=== PATIENT | female | born 1950 | race Caucasian/White ===

== ENCOUNTER 2018-08-08 09:27 | Outpatient (CLI) | payer MEDICARE, OTHER ==
[~2018-08-08] VITALS: Ht 160 cm; Wt 119.7 kg
[2018-08-08 09:41] VITALS: BP 157/89
[2018-08-08 10:12] LABS: BASOPHILS % (AUTO) 0 % (0-10); EOSINOPHILS % (AUTO) 0 % (0-10); HEMATOCRIT 43 % (35-52); HEMOGLOBIN 14.1 G/DL (11.5-16.0); LYMPHOCYTES # (AUTO) 1.3 X 10^3 (1.0-4.0); LYMPHOCYTES % (AUTO) 14 % (12-44); MEAN CORPUSCULAR HEMOGLOBIN 31 PG (25-34); MEAN CORPUSCULAR HGB CONC 33 G/DL (32-36); MEAN CORPUSCULAR VOLUME 94 FL (80-99); MEAN PLATELET VOLUME 10.4 FL (7.4-10.4); MONOCYTES # (AUTO) 0.8 X 10^3 (0.0-1.0); MONOCYTES % (AUTO) 9 % (0-12); NEUTROPHILS # (AUTO) 7.3 X 10^3 (1.8-7.8); NEUTROPHILS % (AUTO) 77 % (42-75); PLATELET COUNT 251 10^3/uL (130-400); RED CELL DISTRIBUTION WIDTH 14.8 % (10.0-14.5); WHITE BLOOD COUNT 9.5 10^3/uL (4.3-11.0)
[2018-08-08 10:28] LABS: BUN/CREATININE RATIO 18; CALCIUM 9.7 MG/DL (8.5-10.1); CARBON DIOXIDE 25 MMOL/L (21-32); CHLORIDE 105 MMOL/L (98-107); CREATININE SERUM 0.72 MG/DL (0.60-1.30); GFR ESTIMATED > 60; GLUCOSE 88 MG/DL (70-105); POTASSIUM 3.9 MMOL/L (3.6-5.0); SODIUM 140 MMOL/L (135-145)
--- NOTE | 2018-08-08 10:54 | Diagnostic Imaging Report ---
INDICATION: Preop for sinus surgery. TIME OF EXAMINATION: 10:10 a.m. COMPARISON: No prior studies are available for comparison. FINDINGS: The heart size is normal. Lungs are clear. The pulmonary vascularity is normal. No infiltrate, effusion or pneumothorax is seen. There are postop changes in the lower cervical spine. IMPRESSION: No acute cardiopulmonary process is detected. Dictated by: Dictated on workstation # [id number]
[2018-08-08] MEDS ORDERED: PARO40TA PO (12:13)
[2018-08-08] MEDS ORDERED: CALC600T12 PO (12:14)
[2018-08-08] MEDS ORDERED: CHOL500049 PO (12:14)
[2018-08-08] MEDS ORDERED: DOXE100C4 PO (12:14)
[2018-08-08] MEDS ORDERED: RT-ALBUINH IH (12:14)
[2018-08-08] MEDS ORDERED: FLUT1DIS26 IH (12:14)
== END 2018-08-08 10:20 | disposition home or self-care (01) ==
LOC: PREOP 09:27
PROVIDERS: ATTEND Otolaryngology Otolaryngology/Facial Plastic Surgery
DX: Z01.810 Encounter for preprocedural cardiovascular examination (principal); Z01.811 Encounter for preprocedural respiratory examination; Z01.812 Encounter for preprocedural laboratory examination; Z11.2 Encounter for screening for other bacterial diseases; J32.9 Chronic sinusitis, unspecified; J34.3 Hypertrophy of nasal turbinates
CPT/HCPCS: 36415; 71046; 80048; 85025; 87081; 93005

== ENCOUNTER 2018-08-11 06:28 | Day surgery (SDC) | payer MEDICARE, OTHER ==
[~2018-08-11] VITALS: Ht 160 cm; Wt 119.7 kg
[~2018-08-11 06:28] MED LIST: CALC600T12 PO; CHOL500049 PO; DOXE100C4 PO; FLUT1DIS26 IH; PARO40TA PO; RT-ALBUINH IH
[2018-08-11] MEDS ORDERED: HYDROCORTISONE 100 MG/2 ML (Solu-CORTEF) VIAL IV ONE (06:45)
[2018-08-11] MEDS ORDERED: AMPICILLIN/SULBACTAM INJECTION 1.5 GM in NS (IVPB) 100 ML IV ONE (06:45)
[2018-08-11] MEDS ORDERED: CATHETER FLUSH 10 ML SYR IV PRN (07:00)
[2018-08-11 07:05] VITALS: BP 164/98
[2018-08-11] MEDS: LACTATED RINGERS 1,000 ML IV PRN ×2 (07:05→08:45)
--- NOTE | 2018-08-11 07:12 | Progress Note-Pre Operative ---
Pre-Operative Progress Note H&P Reviewed The H&P was reviewed, patient examined and no changes noted. Date Seen by Provider: Aug 11, 2018 Time Seen by Provider: 06:30 Date H&P Reviewed: Aug 11, 2018 Time H&P Reviewed: 06:30 Pre-Operative Diagnosis: Bilaty Chronic Sinustitis, Bialt HYper of INf Turbs ZEB HOLLINGSWORTH MD Aug 11, 2018 07:12
[2018-08-11] MEDS ORDERED: FAMOTIDINE 20MG/2ML IV (PEPCID) IV ONE (07:15)
[2018-08-11] MEDS ORDERED: ONDANSETRON 4 MG/2 ML (SDV) Z0FRAN IV ONE (07:15)
[2018-08-11] MEDS ORDERED: SCOPOLAMINE 1.5 MG (TRANSDERM-SCOP) PATCH TOP ONE (07:15)
[2018-08-11] MEDS ORDERED: PHENYLEPHRINE 0.25% NASAL SPR (NEO-SYNEPHRINE) 15 ML NS ONE (07:52)
[2018-08-11] MEDS ORDERED: COCAINE HCL 4% 2 ML SYR ONE (07:52)
[2018-08-11] MEDS ORDERED: LIDOCAINE/EPI 1%-1:100,000 (XYLOCAINE) 20ML ONE (07:52)
[2018-08-11] MEDS ORDERED: PHENYLEPHRINE 0.5% NASAL SPR (NEO-SYNEPHRINE) REG ONE (07:52)
[2018-08-11] MEDS ORDERED: BSS 15 ML ONE (07:52)
[2018-08-11] MEDS ORDERED: proPOfol 200 MG/20 ML (DIPRIVAN) VIAL IV ONE (07:54)
[2018-08-11] MEDS ORDERED: LIDOCAINE PF 2% 5 ML (XYLOCAINE) VIAL ONE (07:54)
[2018-08-11] MEDS ORDERED: SEVOFLURANE (ULTANE) 15 ML INHAL SOLN ONE ×5 (07:54→09:41)
[2018-08-11] MEDS ORDERED: fentaNYL INJECTION 100 MCG/2 ML AMP ONE ×2 (07:54→09:18)
[2018-08-11] MEDS ORDERED: DEXAMETHASONE 10 MG/ML (DECADRON) 1 ML VIAL ONE (07:54)
[2018-08-11] MEDS ORDERED: ONDANSETRON 4 MG/2 ML (SDV) Z0FRAN ONE (07:54)
[2018-08-11] MEDS ORDERED: MIDAZOLAM 2 MG/2 ML (VERSED) VIAL ONE (07:55)
[2018-08-11] MEDS ORDERED: GLYCOPYRROLATE 0.2 MG/ML (ROBINUL) 2 ML VIAL ONE (08:05)
[2018-08-11] MEDS ORDERED: NEOSTIGMINE 1 MG/ML 5 ML SYRINGE ONE (08:05)
[2018-08-11] MEDS ORDERED: ROCURONIUM 10 MG/ML 5 ML SYRINGE IV ONE (09:03)
[2018-08-11] MEDS ORDERED: D5 1/2 NS W/KCL 20 MEQ/L 1,000 ML IV SCH (09:28)
--- NOTE | 2018-08-11 09:28 | Progress Note-Post Operative ---
Post-Operative Progess Note Surgeon (s)/Meat Soaker (s) Surgeon ZEB HOLLINGSWORTH MD Meat Soaker n/a Pre-Operative Diagnosis Bilaty Chronic Sinustitis, Bialt HYper of INf Turbs Post-Operative Diagnosis same Post-Op Procedure Note Date of Procedure: Aug 11, 2018 Name of Procedure Performed: Bilat ESS, Bilat PArtial REd of INf Turbs Description & Findings Description and Findings: n/a Anesthesia Type get Estimated Blood Loss minimal Packing dnp bilat Specimen(s) collected/removed Bilat Chrnic sinus disease ZEB HOLLINGSWORTH MD Aug 11, 2018 09:28
[2018-08-11] MEDS ORDERED: predniSONE 20 MG TAB PO ONE (09:30)
[2018-08-11] MEDS ORDERED: PROMETHAZINE INJ 25 MG/ML (PHENERGAN) AMP IVP PRN (09:30)
[2018-08-11] MEDS ORDERED: ACETAMINOPHEN 325 MG TABLET PO PRN (09:30)
[2018-08-11] MEDS ORDERED: HYDROcodone/APAP 5 MG/325 MG (LORTAB) TAB PO PRN (09:30)
[2018-08-11] MEDS ORDERED: RT-ALBUTEROL HFA (VENTOLIN) PER PUFF IH ONE (09:40)
[2018-08-11] MEDS ORDERED: LABETALOL HCL 20 MG/4 ML VIAL ONE (09:41)
[2018-08-11] MEDS ORDERED: ONDANSETRON 4 MG/2 ML (SDV) Z0FRAN IVP PRN (09:45)
[2018-08-11] MEDS ORDERED: morphine INJ 10 MG/ML 1ML (SYR OR VIAL) IVP ONE (09:45)
[2018-08-11] MEDS ORDERED: RT-ALBUTEROL SULF 2.5 MG/3 ML PRE-MIX VIAL ONE (09:57)
[2018-08-11 10:45] VITALS: BP 164/98
[2018-08-11 11:15] VITALS: BP 153/86
[2018-08-11] MEDS ORDERED: predniSONE 20 MG TAB ONE (11:38)
[2018-08-11 11:45] VITALS: BP 166/107
[2018-08-11] MEDS ORDERED: LABETALOL HCL 20 MG/4 ML VIAL IV ONE (11:45)
[2018-08-11] MEDS ORDERED: RT-ALBUTEROL SULF 2.5 MG/3 ML PRE-MIX VIAL INH ONE (11:45)
[2018-08-11] MEDS ORDERED: HYDR-3812 PO (12:19)
[2018-08-11] MEDS ORDERED: PRED-501 PO (12:19)
[2018-08-11] MEDS ORDERED: AMOX-355 PO (12:19)
[2018-08-11 12:45] VITALS: BP 168/94
[2018-08-11 13:30] VITALS: BP 168/94
--- NOTE | 2018-08-11 13:36 | Anesthesia-General Post-Op ---
General Patient Condition Mental Status/LOC: Same as Preop Cardiovascular: Satisfactory Nausea/Vomiting: Absent Respiratory: Satisfactory Pain: Controlled Complications: Absent Post Op Complications Complications None Follow Up Care/Instructions Patient Instructions None needed. Anesthesia/Patient Condition Patient Condition Patient is doing well, no complaints, stable vital signs, no apparent adverse anesthesia problems. No complications reported per nursing. ELIA ASKEW CRNA Aug 11, 2018 13:36
== END 2018-08-11 13:30 | disposition home or self-care (01) ==
LOC: SDC 06:28
PROVIDERS: ATTEND Otolaryngology Otolaryngology/Facial Plastic Surgery
DX: J32.2 Chronic ethmoidal sinusitis (principal); J32.0 Chronic maxillary sinusitis; J34.3 Hypertrophy of nasal turbinates; J45.909 Unspecified asthma, uncomplicated; F32.9 Major depressive disorder, single episode, unspecified; M81.0 Age-related osteoporosis without current pathological fracture; E66.9 Obesity, unspecified; Z68.42 Body mass index [BMI] 45.0-49.9, adult; Z79.899 Other long term (current) drug therapy

== ENCOUNTER → 2018-12-22 | Outpatient (CLI) | payer MEDICARE, OTHER ==
[~2018-12-22] MED LIST changes: +AMOX-355 PO; +BARIUM SUSPENSION 105% (LIQUID POLIBAR PLUS) 240 ML/DOSE PO ONE; +BARIUM SUSPENSION 60% (LIQUID EZ PAQUE) 240 ML DOSE PO ONE; +HYDR-3812 PO; +PRED-501 PO
--- NOTE | 2018-12-22 13:52 | Diagnostic Imaging Report ---
INDICATION: Preop for a bariatric surgery. TECHNIQUE: Patient ingested effervescent crystals as well as thin and thick barium and imaging of the esophagus, stomach and proximal small bowel was performed. A total of one minute 10 seconds of fluoroscopic time was utilized. FINDINGS: Esophagus has a smooth contour. No mass or stricture is identified. No gastro-esophageal reflux or hiatal hernia was demonstrated. Stomach is without deformity. The duodenal bulb is without deformity. There is normal passage of contrast in the proximal small bowel loops. IMPRESSION: Unremarkable upper GI. Dictated by: Dictated on workstation # [id number]
== END ==
LOC: RAD 08:35
PROVIDERS: ATTEND Surgery
DX: Z01.818 Encounter for other preprocedural examination (principal); K21.9 Gastro-esophageal reflux disease without esophagitis
CPT/HCPCS: 74241

== ENCOUNTER 2019-01-12 08:53 | Outpatient (CLI) | payer MEDICARE, OTHER ==
[~2019-01-12] VITALS: Ht 160 cm; Wt 117.5 kg
[~2019-01-12 08:53] MED LIST changes: -BARIUM SUSPENSION 105% (LIQUID POLIBAR PLUS) 240 ML/DOSE PO ONE; -BARIUM SUSPENSION 60% (LIQUID EZ PAQUE) 240 ML DOSE PO ONE
[2019-01-12] MEDS ORDERED: ALPR0.254 PO (09:05)
[2019-01-12] MEDS ORDERED: DENO60DI SQ (09:05)
[2019-01-12] MEDS ORDERED: IBUP-1780 PO (09:05)
[2019-01-12] MEDS ORDERED: GUAI600T43 PO (09:05)
[2019-01-12 09:08] VITALS: BP 142/81
[2019-01-12 09:41] LABS: BASOPHILS % (AUTO) 0 % (0-10); EOSINOPHILS # (AUTO) 0.1 10^3/uL (0.0-0.3); EOSINOPHILS % (AUTO) 1 % (0-10); HEMATOCRIT 46 % (35-52); HEMOGLOBIN 15.3 G/DL (11.5-16.0); LYMPHOCYTES # (AUTO) 1.1 X 10^3 (1.0-4.0); LYMPHOCYTES % (AUTO) 12 % (12-44); MEAN CORPUSCULAR HEMOGLOBIN 30 PG (25-34); MEAN CORPUSCULAR HGB CONC 33 G/DL (32-36); MEAN CORPUSCULAR VOLUME 91 FL (80-99); MEAN PLATELET VOLUME 11.4 FL (7.4-10.4); MONOCYTES # (AUTO) 0.7 X 10^3 (0.0-1.0); MONOCYTES % (AUTO) 7 % (0-12); NEUTROPHILS # (AUTO) 7.2 X 10^3 (1.8-7.8); NEUTROPHILS % (AUTO) 79 % (42-75); PLATELET COUNT 214 10^3/uL (130-400); RED CELL DISTRIBUTION WIDTH 14.8 % (10.0-14.5); WHITE BLOOD COUNT 9.1 10^3/uL (4.3-11.0)
[2019-01-19] MEDS ORDERED: ONDN4T PO (13:05)
[2019-01-19] MEDS ORDERED: HYDR-34 PO (13:05)
[2019-01-19] MEDS ORDERED: PANT40TA2 PO (13:05)
== END 2019-01-12 14:40 | disposition home or self-care (01) ==
LOC: PREOP 08:53
PROVIDERS: ATTEND Surgery
DX: Z01.818 Encounter for other preprocedural examination (principal); E66.01 Morbid (severe) obesity due to excess calories
CPT/HCPCS: 36415; 85025; 87081

== ENCOUNTER 2019-01-19 10:30 | Inpatient (IN) | payer MEDICARE, OTHER ==
[2019-01-19] VITALS (10 sets, daily range): BP systolic 124–163; BP diastolic 67–84
[~2019-01-19] VITALS: Ht 160 cm; Wt 117.5 kg
[~2019-01-19 10:30] MED LIST changes: +ALPR0.254 PO; +DENO60DI SQ; +GUAI600T43 PO; +IBUP-1780 PO
--- OUTSIDE RECORDS SUMMARY | 2019-01-19 12:47 | XMS REPORT | Continuity of Care Document ---
Author Organization Unknown Address Unknown Allergies Active Description Code Type Severity Reaction Onset Reported/Identified Relationship to Patient Clinical Status Yes NKANo Known Allergies NKA Miscellaneous Allergy Unknown N/A 05/19/2006 Yes No Known Drug Allergies [id number] Drug Allergy Unknown N/A 01/12/2019 Medications There is no data. Problems Date Dx Coded Attending Type Code Diagnosis Diagnosed By 08/08/2018 ZEB HOLLINGSWORTH MD, Ot J32.9 CHRONIC SINUSITIS, UNSPECIFIED 08/08/2018 ZEB HOLLINGSWORTH MD Ot J34.3 HYPERTROPHY OF NASAL TURBINATES 08/08/2018 ZEB HOLLINGSWORTH MD Ot Z01.810 ENCOUNTER FOR PREPROCEDURAL CARDIOVASCUL 08/08/2018 ZEB HOLLINGSWORTH MD Ot Z01.811 ENCOUNTER FOR PREPROCEDURAL RESPIRATORY 08/08/2018 ZEB HOLLINGSWORTH MD Ot Z01.812 ENCOUNTER FOR PREPROCEDURAL LABORATORY E 08/08/2018 ZEB HOLLINGSWORTH MD Ot Z11.2 ENCOUNTER FOR SCREENING FOR OTHER BACTER 08/09/2018 ZEB HOLLINGSWORTH MD Ot J32.9 CHRONIC SINUSITIS, UNSPECIFIED 08/09/2018 ZEB HOLLINGSWORTH MD Ot J34.3 HYPERTROPHY OF NASAL TURBINATES 08/09/2018 ZEB HOLLINGSWORTH MD Ot Z01.810 ENCOUNTER FOR PREPROCEDURAL CARDIOVASCUL 08/09/2018 ZEB HOLLINGSWORTH MD Ot Z01.811 ENCOUNTER FOR PREPROCEDURAL RESPIRATORY 08/09/2018 ZEB HOLLINGSWORTH MD Ot Z01.812 ENCOUNTER FOR PREPROCEDURAL LABORATORY E 08/09/2018 ZEB HOLLINGSWORTH MD Ot Z11.2 ENCOUNTER FOR SCREENING FOR OTHER BACTER 08/11/2018 ZEB HOLLINGSWORTH MD Ot E66.9 OBESITY, UNSPECIFIED 08/11/2018 ZEB HOLLINGSWORTH MD Ot F32.9 MAJOR DEPRESSIVE DISORDER, SINGLE EPISOD 08/11/2018 ZEB HOLLINGSWORTH MD Ot J32.0 CHRONIC MAXILLARY SINUSITIS 08/11/2018 ZEB HOLLINGSWORTH MD Ot J32.2 CHRONIC ETHMOIDAL SINUSITIS 08/11/2018 ZEB HOLLINGSWORTH MD P Ot J34.3 HYPERTROPHY OF NASAL TURBINATES 08/11/2018 ZEB HOLLINGSWORTH MD Ot J45.909 UNSPECIFIED ASTHMA, UNCOMPLICATED 08/11/2018 ZEB HOLLINGSWORTH MD Ot M81.0 AGE-RELATED OSTEOPOROSIS W/O CURRENT PAT 08/11/2018 ZEB HOLLINGSWORTH MD Ot Z68.42 BODY MASS INDEX (BMI) 45.0-49.9, ADULT 08/11/2018 ZEB HOLLINGSWORTH MD Ot Z79.899 OTHER INTERMEDIATE (CURRENT) DRUG THERAPY 08/12/2018 ZEB HOLLINGSWORTH MD Ot E66.9 OBESITY, UNSPECIFIED 08/12/2018 ZEB HOLLINGSWORTH MD Ot F32.9 MAJOR DEPRESSIVE DISORDER, SINGLE EPISOD 08/12/2018 ZEB HOLLINGSWORTH MD P Ot J32.0 CHRONIC MAXILLARY SINUSITIS 08/12/2018 ZEB HOLLINGSWORTH MD P Ot J32.2 CHRONIC ETHMOIDAL SINUSITIS 08/12/2018 ZEB HOLLINGSWORTH MD Ot J34.3 HYPERTROPHY OF NASAL TURBINATES 08/12/2018 EZB HOLLINGSWORTH MD Ot J45.909 UNSPECIFIED ASTHMA, UNCOMPLICATED 08/12/2018 ZEB HOLLINGSWORTH MD Ot M81.0 AGE-RELATED OSTEOPOROSIS W/O CURRENT PAT 08/12/2018 ZEB HOLLINGSWORTH MD Ot Z68.42 BODY MASS INDEX (BMI) 45.0-49.9, ADULT 08/12/2018 ZEB HOLLINGSWORTH MD Ot Z79.899 OTHER INTERMEDIATE (CURRENT) DRUG THERAPY 08/15/2018 ZEB HOLLINGSWORTH MD Ot E66.9 OBESITY, UNSPECIFIED 08/15/2018 ZEB HOLLINGSWORTH MD Ot F32.9 MAJOR DEPRESSIVE DISORDER, SINGLE EPISOD 08/15/2018 ZEB HOLLINGSWORTH MD P Ot J32.0 CHRONIC MAXILLARY SINUSITIS 08/15/2018 ZEB HOLLINGSWORTH MD P Ot J32.2 CHRONIC ETHMOIDAL SINUSITIS 08/15/2018 ZEB HOLLINGSWORTH MD P Ot J34.3 HYPERTROPHY OF NASAL TURBINATES 08/15/2018 ZEB HOLLINGSWORTH MD Ot J45.909 UNSPECIFIED ASTHMA, UNCOMPLICATED 08/15/2018 ZEB HOLLINGSWORTH MD Ot M81.0 AGE-RELATED OSTEOPOROSIS W/O CURRENT PAT 08/15/2018 ZEB HOLLINGSWORTH MD Ot Z68.42 BODY MASS INDEX (BMI) 45.0-49.9, ADULT 08/15/2018 ZEB HOLLINGSWORTH MD Ot Z79.899 OTHER FUR POINTER (CURRENT) DRUG THERAPY 08/17/2018 ZEB HOLLINGSWORTH MD Ot E66.9 OBESITY, UNSPECIFIED 08/17/2018 ZEB HOLLINGSWORTH MD Ot F32.9 MAJOR DEPRESSIVE DISORDER, SINGLE EPISOD 08/17/2018 ZEB HOLLINGSWORTH MD Ot J32.0 CHRONIC MAXILLARY SINUSITIS 08/17/2018 ZEB HOLLINGSWORTH MD P Ot J32.2 CHRONIC ETHMOIDAL SINUSITIS 08/17/2018 ZEB HOLLINGSWORTH MD P Ot J34.3 HYPERTROPHY OF NASAL TURBINATES 08/17/2018 ZEB HOLLINGSWORTH MD Ot J45.909 UNSPECIFIED ASTHMA, UNCOMPLICATED 08/17/2018 ZEB HOLLINGSWORTH MD Ot M81.0 AGE-RELATED OSTEOPOROSIS W/O CURRENT PAT 08/17/2018 ZEB HOLLINGSWORTH MD Ot Z68.42 BODY MASS INDEX (BMI) 45.0-49.9, ADULT 08/17/2018 ZEB HOLLINGSWORTH MD Ot Z79.899 OTHER INTERMEDIATE (CURRENT) DRUG THERAPY 08/24/2018 ZEB HOLLINGSWORTH MD Ot E66.9 OBESITY, UNSPECIFIED 08/24/2018 ZEB HOLLINGSWORTH MD Ot F32.9 MAJOR DEPRESSIVE DISORDER, SINGLE EPISOD 08/24/2018 ZEB HOLLINGSWORTH MD Ot J32.0 CHRONIC MAXILLARY SINUSITIS 08/24/2018 ZEB HOLLINGSWORTH MD P Ot J32.2 CHRONIC ETHMOIDAL SINUSITIS 08/24/2018 ZEB HOLLINGSWORTH MD Ot J34.3 HYPERTROPHY OF NASAL TURBINATES 08/24/2018 ZEB HOLLINGSWORTH MD Ot J45.909 UNSPECIFIED ASTHMA, UNCOMPLICATED 08/24/2018 ZEB HOLLINGSWORTH MD Ot M81.0 AGE-RELATED OSTEOPOROSIS W/O CURRENT PAT 08/24/2018 ZEB HOLLINGSWORTH MD Ot Z68.42 BODY MASS INDEX (BMI) 45.0-49.9, ADULT 08/24/2018 ZEB HOLLINGSWORTH MD Ot Z79.899 OTHER INTERMEDIATE (CURRENT) DRUG THERAPY 12/28/2018 WAI BARKER MD, Ot K21.9 GASTRO-ESOPHAGEAL REFLUX DISEASE WITHOUT 12/28/2018 WAI BARKER MD, Ot Z01.818 ENCOUNTER FOR OTHER PREPROCEDURAL EXAMIN 01/12/2019 WAI BARKER MD, Ot1.9 GASTRO-ESOPHAGEAL REFLUX DISEASE WITHOUT 01/12/2019 WAI BARKER MD Ot Z01.818 ENCOUNTER FOR OTHER PREPROCEDURAL EXAMIN 01/19/2019 WAI BARKER MD, Ot E66.01 MORBID (SEVERE) OBESITY DUE TO EXCESS CA 01/19/2019 WAI BARKER MD, Ot Z01.818 ENCOUNTER FOR OTHER PREPROCEDURAL EXAMIN Procedures There is no data. Results Test Result Range Whole blood basic metabolic panel - 08/08/18 10:04 Serum or plasma sodium measurement (moles/volume) 140 mmol/L 135-145 Serum or plasma potassium measurement (moles/volume) 3.9 mmol/L 3.6-5.0 Serum or plasma chloride measurement (moles/volume) 105 mmol/L 98-107 Carbon dioxide 25 mmol/L 21-32 Serum or plasma anion gap determination (moles/volume) 10 mmol/L 5-14 Serum or plasma urea nitrogen measurement (mass/volume) 13 mg/dL 7-18 Serum or plasma creatinine measurement (mass/volume) 0.72 mg/dL 0.60-1.30 Serum or plasma urea nitrogen/creatinine mass ratio 18 NRG Serum or plasma creatinine measurement with calculation of estimated glomerular filtration rate > NRG Serum or plasma glucose measurement (mass/volume) 88 mg/dL 70-105 Serum or plasma calcium measurement (mass/volume) 9.7 mg/dL 8.5-10.1 Methicillin resistant Staphylococcus aureus (MRSA) screening culture - 08/08/18 10:04 Methicillin resistant Staphylococcus aureus (MRSA) screening culture NEG NRG CMP - 12/06/18 08:27 GLUCOSE 107 mg/dL 65-99 UREA NITROGEN (BUN) 14 mg/dL 7-25 CREATININE 0.76 mg/dL 0.50-0.99 eGFR NON-AFR. ICELANDIC 81 mL/min/1.73m2 > OR=60 eGFR 94 mL/min/1.73m2 > OR=60 BUN/CREATININE RATIO NOT APPLICABLE (calc) 6-22 SODIUM 142 mmol/L 135-146 POTASSIUM 4.2 mmol/L 3.5-5.3 CHLORIDE 105 mmol/L 98-110 CARBON DIOXIDE 29 mmol/L 20-32 CALCIUM 9.2 mg/dL 8.6-10.4 PROTEIN, TOTAL 6.3 g/dL 6.1-8.1 ALBUMIN 4.0 g/dL 3.6-5.1 GLOBULIN 2.3 g/dL (calc) 1.9-3.7 ALBUMIN/GLOBULIN RATIO 1.7 (calc) 1.0-2.5 BILIRUBIN, TOTAL 1.0 mg/dL 0.2-1.2 ALKALINE PHOSPHATASE 77 U/L 33-130 AST 16 U/L 10-35 ALT 16 U/L 6-29 CBC - 12/06/18 08:27 WHITE BLOOD CELL COUNT 7.0 Thousand/uL 3.8-10.8 RED BLOOD CELL COUNT 4.87 Million/uL 3.80-5.10 HEMOGLOBIN 14.6 g/dL 11.7-15.5 HEMATOCRIT 44.3 % 35.0-45.0 MCV 91.0 fL 80.0-100.0 MCH 30.0 pg 27.0-33.0 MCHC 33.0 g/dL 32.0-36.0 RDW 13.0 % 11.0-15.0 PLATELET COUNT 230 Thousand/uL 140-400 MPV 10.9 fL 7.5-12.5 ABSOLUTE NEUTROPHILS 4571 cells/uL 5266-4143 ABSOLUTE LYMPHOCYTES 1596 cells/uL 850-3900 ABSOLUTE MONOCYTES 539 cells/uL 200-950 ABSOLUTE EOSINOPHILS 231 cells/uL 15-500 ABSOLUTE BASOPHILS 63 cells/uL 0-200 NEUTROPHILS 65.3 % NRG LYMPHOCYTES 22.8 % NRG MONOCYTES 7.7 % NRG EOSINOPHILS 3.3 % NRG BASOPHILS 0.9 % NRG VITAMIN D, 25-H - 12/06/18 08:27 VITAMIN D,25-OH,TOTAL,IA 30 ng/mL 30-100 Complete blood count (CBC) with automated white blood cell (WBC) differential - 01/12/19 09:30 Blood leukocytes automated count (number/volume) 9.1 10*3/uL 4.3-11.0 Blood erythrocytes automated count (number/volume) 5.05 10*6/uL 4.35-5.85 Venous blood hemoglobin measurement (mass/volume) 15.3 g/dL 11.5-16.0 Blood hematocrit (volume fraction) 46 % 35-52 Automated erythrocyte mean corpuscular volume 91 [foz_us] 80-99 Automated erythrocyte mean corpuscular hemoglobin (mass per erythrocyte) 30 pg 25-34 Automated erythrocyte mean corpuscular hemoglobin concentration measurement (mass/volume) 33 g/dL 32-36 Automated erythrocyte distribution width ratio 14.8 % 10.0- 14.5 Automated blood platelet count (count/volume) 214 10*3/uL 130-400 Automated blood platelet mean volume measurement 11.4 [foz_us] 7.4-10.4 Automated blood neutrophils/100 leukocytes 79 % 42-75 Automated blood lymphocytes/100 leukocytes 12 % 12-44 Blood monocytes/100 leukocytes 7 % 0-12 Automated blood eosinophils/100 leukocytes 1 % 0-10 Automated blood basophils/100 leukocytes 0 % 0-10 Blood neutrophils automated count (number/volume) 7.2 10*3 1.8-7.8 Blood lymphocytes automated count (number/volume) 1.1 10*3 1.0-4.0 Blood monocytes automated count (number/volume) 0.7 10*3 0.0- 1.0 Automated eosinophil count 0.1 10*3/uL 0.0-0.3 Automated blood basophil count (count/volume) 0.0 10*3/uL 0.0-0.1 Methicillin resistant Staphylococcus aureus (MRSA) screening culture - 01/12/19 09:30 Methicillin resistant Staphylococcus aureus (MRSA) screening culture NEG NRG Encounters ACCT No. Visit Date/Time Discharge Status Pt. Type Provider Facility Loc./Unit Complaint [id number] 01/16/2019 09:30:00 ACT Outpatient [facility] [id number] 12/06/2018 08:30:00 Document Registration [id number] 01/12/2019 08:53:00 01/12/2019 14:40:00 DIS Outpatient WAI BARKER MD [facility] PREOP MORBID OBESITY [id number] 12/22/2018 08:35:00 12/22/2018 23:59:59 CLS Outpatient WAI BARKER MD [facility] RAD REFLUX [id number] 08/11/2018 06:28:00 08/11/2018 13:30:00 DIS Outpatient ZEB HOLLINGSWORTH MD [facility] SDC HYPERTROPHY INFERIOR TURBINATES [id number] 08/08/2018 09:27:00 08/08/2018 10:20:00 DIS Outpatient ZEB HOLLINGSWORTH MD [facility] PREOP ESS, DANA. REDUCTION INF. TURBINATES [id number] 01/19/2019 10:30:00 BRAYAN BARKER MD, WAI MORBID OBESITY
[2019-01-19] MEDS ORDERED: LACTATED RINGERS 1,000 ML IV PRN (12:49)
[2019-01-19] MEDS ORDERED: NS IV 1000 ML 1,000 ML IV SCH (12:57)
--- NOTE | 2019-01-19 12:57 | Progress Note-Pre Operative ---
Pre-Operative Progress Note H&P Reviewed The H&P was reviewed, patient examined and no changes noted. Date Seen by Provider: Jan 19, 2019 Time Seen by Provider: 12:30 Date H&P Reviewed: Jan 19, 2019 Time H&P Reviewed: 12:30 Pre-Operative Diagnosis: morbid obesity, HTN WAI BARKER MD Jan 19, 2019 12:57
[2019-01-19] MEDS ORDERED: diphenhydrAMINE 50 MG/ML INJ (BENADRYL) IV PRN (13:00)
[2019-01-19] MEDS ORDERED: ONDANSETRON 4 MG/2 ML (SDV) Z0FRAN IV PRN (13:00)
[2019-01-19] MEDS ORDERED: metroNIDAZOLE 500MG/100ML IVPB 100 ML IV SCH (13:00)
[2019-01-19] MEDS ORDERED: diphenhydrAMINE 50 MG/ML INJ (BENADRYL) IVP PRN (13:00)
[2019-01-19] MEDS ORDERED: METOCLOPRAMIDE INJ 10 MG/2 ML (REGLAN) IV PRN (13:00)
[2019-01-19] MEDS ORDERED: NALOXONE 0.4 MG/ML 1 ML (NARCAN) VIAL IV PRN (13:00)
[2019-01-19] MEDS ORDERED: oxyCODONE 5 MG/5 ML ORAL SOLN (roxiCODONE) 5 ML UDC PO PRN (13:00)
[2019-01-19] MEDS ORDERED: ceFAZolin 2 GM/50 ML NS 50 ML IV ONE (13:00)
[2019-01-19] MEDS ORDERED: fentaNYL INJECTION 1,000 MCG in NS (IVPB) 80 ML IV SCH (13:00)
[2019-01-19] MEDS ORDERED: PANT40TA2 PO (13:05)
[2019-01-19] MEDS ORDERED: ONDN4T PO (13:05)
[2019-01-19] MEDS ORDERED: HYDR-34 PO (13:05)
--- NOTE | 2019-01-19 13:06 | Discharge Inst-Surgical ---
D/C Lap Instructions-MJ New, Converted, or Re-Newed RX: RX on Chart Follow Up Appt in 2 weeks Activity as tolerated No driving for 24 hours No driving while on pain medications Incentive Spirometry use every 2 hours while awake phase 1 clear liquid diet 2 weeks Symptoms to Report: Fever over 101 degree F, Nausea/Vomiting Infection Signs and Symptoms to report: Increased redness, Foul odor of wound, Increased drainage Bathing instructions: May shower Operative Area Clean/Dry; Keep incision clean/dry If any problems/questions: Contact your physician or go to Emergency Room WAI BARKER MD Jan 19, 2019 13:06
[2019-01-19] MEDS ORDERED: ONDANSETRON 4 MG/2 ML (SDV) Z0FRAN ONE ×2 (13:44→14:23)
[2019-01-19] MEDS ORDERED: FAMOTIDINE 20MG/2ML IV (PEPCID) ONE (13:44)
[2019-01-19] MEDS ORDERED: SCOPOLAMINE 1.5 MG (TRANSDERM-SCOP) PATCH ONE (13:44)
[2019-01-19] MEDS ORDERED: ceFAZolin 2 GM IV Premixed 50 ML IV SCH (14:00)
[2019-01-19] MEDS ORDERED: fentaNYL INJECTION 100 MCG/2 ML AMP ONE (14:19)
[2019-01-19] MEDS ORDERED: MIDAZOLAM 2 MG/2 ML (VERSED) VIAL ONE (14:19)
[2019-01-19] MEDS ORDERED: BUP/EPI 0.5% 1:200,000 (MARCAINE) 10ML VIAL IJ ONE (14:22)
[2019-01-19] MEDS ORDERED: SEVOFLURANE (ULTANE) 15 ML INHAL SOLN ONE (14:23)
[2019-01-19] MEDS ORDERED: LIDOCAINE PF 2% 5 ML (XYLOCAINE) VIAL ONE (14:23)
[2019-01-19] MEDS ORDERED: DEXAMETHASONE 10 MG/ML (DECADRON) 1 ML VIAL ONE (14:23)
[2019-01-19] MEDS ORDERED: proPOfol 200 MG/20 ML (DIPRIVAN) VIAL IV ONE (14:23)
[2019-01-19] MEDS ORDERED: ROCURONIUM 10 MG/ML 5 ML SYRINGE IV ONE (14:25)
[2019-01-19] MEDS ORDERED: SCOPOLAMINE 1.5 MG (TRANSDERM-SCOP) PATCH TD ONE (14:30)
[2019-01-19] MEDS ORDERED: ONDANSETRON 4 MG/2 ML (SDV) Z0FRAN IVP ONE (14:30)
[2019-01-19] MEDS ORDERED: FAMOTIDINE 20MG/2ML IV (PEPCID) IVP ONE (14:30)
[2019-01-19] MEDS ORDERED: DESFLURANE (SUPRANE) 15 ML INHAL SOLN ONE ×6 (16:06→17:20)
[2019-01-19] MEDS ORDERED: HYDROmorphone 2 MG/ML VIAL (DILAUDID) ONE (16:21)
[2019-01-19] MEDS ORDERED: morphine INJ 10 MG/ML 1ML (SYR OR VIAL) ONE (16:40)
--- NOTE | 2019-01-19 17:35 | Progress Note-Post Operative ---
Post-Operative Progess Note Surgeon (s)/Geology Technician (s) Surgeon WAI BARKER MD Geology Technician: sera abebe BODY FORMER Pre-Operative Diagnosis morbid obesity, HTN Post-Operative Diagnosis same Procedure & Operative Findings Date of Procedure 01/19/19 Procedure Performed/Findings laparoscopic gastric sleeve resection. Anesthesia Type GET Estimated Blood Loss Estimated blood loss (mL): minimal Specimens/Packing Specimens Removed stomach WAI BARKER MD Jan 19, 2019 17:35
[2019-01-19] MEDS ORDERED: morphine INJ 10 MG/ML 1ML (SYR OR VIAL) IVP ONE (17:45)
[2019-01-19] MEDS ORDERED: ONDANSETRON 4 MG/2 ML (SDV) Z0FRAN IVP PRN (17:45)
[2019-01-19] MEDS ORDERED: HYDROmorphone 2 MG/ML VIAL (DILAUDID) IV ONE (17:45)
[2019-01-19] MEDS ORDERED: PROMETHAZINE INJ 25 MG/ML (PHENERGAN) AMP IVP ONE (17:45)
[2019-01-19] MEDS ORDERED: RT-ALBUTEROL SULF 2.5 MG/3 ML PRE-MIX VIAL ONE (19:14)
[2019-01-19] MEDS: LACTATED RINGERS 1,000 ML IV SCH (19:52)
[2019-01-19] MEDS: metroNIDAZOLE 500MG/100ML IVPB 100 ML IV SCH (19:53)
[2019-01-19] MEDS: RT-ALBUTEROL SULF 2.5 MG/3 ML PRE-MIX VIAL INH SCH ×2 (20:14→23:03)
[2019-01-19] MEDS: ONDANSETRON 4 MG/2 ML (SDV) Z0FRAN IVP SCH ×2 (20:33→23:49)
[2019-01-19] MEDS: METOCLOPRAMIDE INJ 10 MG/2 ML (REGLAN) IVP SCH ×2 (20:33→23:49)
[2019-01-19] MEDS: ENOXAPARIN 40 MG/0.4 ML (LOVENOX) SYR SC SCH (20:34)
--- NOTE | 2019-01-19 21:33 | OPERATIVE REPORT ---
DATE OF SERVICE: 01/19/2019 ATTENDING PRIMARY CARE PHYSICIAN: Dr. Lawson. PREOPERATIVE DIAGNOSES: Morbid obesity, hypertension, anxiety, depression. POSTOPERATIVE DIAGNOSES: Morbid obesity, hypertension, anxiety, depression. PROCEDURE: Laparoscopic gastric sleeve resection. SURGEON: Wai Barker MD. AIR BRAKE RIGGER: Lxe Purdy APRN. ANESTHESIA: General endotracheal. ESTIMATED BLOOD LOSS: Minimal. FINDINGS: Mild hepatomegaly, no hiatal hernia identified. DISPOSITION: The patient tolerated the procedure well. INDICATIONS: The patient is a 68-year-old female who is in our surgical weight loss program for the gastric sleeve resection and meets the medical criteria for bariatric surgery. She reports that she gained a lot of her adult weight and developed medical problems approximately seven years ago. She states that she continued to gain weight despite trying medical weight loss including diets, exercise programs as well as medications. She has tried diet programs including Weight Watchers, Atkins low calorie, low carbohydrate diets with no success. She has tried exercise regimens including aerobic classes, resistance weight training again with no success. She has tried phentermine in the past and states that she would lose approximately 15 pounds; however, would always regain the weight back after discontinuation of the medication. Her medical comorbidities related to her obesity include hypertension, anxiety, depression. DESCRIPTION OF PROCEDURE: The patient was brought to the operating room, laid supine on the table. After adequate IV pain and sedative medications and general endotracheal intubation, the abdomen was prepped and draped in standard surgical fashion. A 0.5% Marcaine with epinephrine was then used to anesthetize the overlying skin in the left upper abdominal quadrant and a transverse skin incision was made using a 15 blade. An 0 silk suture was applied to the medial aspect of the incision for retraction and a Veress needle was inserted with a low opening pressure of 0 mmHg. The abdomen was then insufflated to 15 mmHg pressure. The Veress needle removed and a 5 mm Xcel trocar placed followed by a 5 mm 45-degree angle laparoscope visualizing the peritoneal cavity. A 4-quadrant abdominal exploration was performed. There was mild hepatomegaly. There was no hiatal hernia identified. Under direct visualization, we then proceed to place a midabdominal left of midline 10 mm port after the skin and peritoneal lining were anesthetized using 0.5% Marcaine with epinephrine and a transverse skin incision made using 15 blade. In a similar manner, a mid abdominal right of midline and right upper abdominal quadrant 5 mm port was placed. The epigastric region was then anesthetized and a transverse skin incision made using 11 blade and a tract was then created through the abdominal wall layers using a trocar to a 5 mm port and through this opening, a medium sized Ketan liver retractor was placed and the left lobe of the liver retracted anteriorly and superiorly. The patient was then placed in steep reverse Trendelenburg position. We then measured 6 cm from the pylorus along the greater curvature and marked this with a marking pen. The gastrocolic ligament next to the stomach was then opened using a Sonicision entering the lesser sac. We then proceeded with caudal dissection until we were approximately 2 cm below our marking using the Sonicision. We then proceeded cephalad taking down the short gastric vessels. We then took down the angle of His connective tissue fibers as well as the posterior stomach behind this using the Sonicision with visualization of good hemostasis. An 42-Gabonese angle tipped bougie was then placed under direct visualization and directed into the pylorus. Using this as a guide, we then proceeded with our gastric sleeve resection. We first proceeded with a 45 mm polyglycolic acid black load 2 cm below our marking. We then proceeded with two 60 mm black loads followed by two 60 mm purple loads. Good hemostasis was observed. Approximately 2 cm near the gastroesophageal junction was left behind. The staple line corners were then clipped with 5 mm clips. Fibrin glue was then placed on to the staple line and the omentum placed onto the staple line. The bougie and liver retractor was then removed. The stomach was removed through the 15 mm port site. The 10 mm and 15 mm port site fascia and peritoneum were then closed under direct visualization using a Nilo-Paz device and an 0 Vicryl suture. The abdomen was then desufflated and remaining ports removed. All skin incisions were closed using 4-0 Monocryl running subcuticular sutures. Wounds were then cleaned and covered with Dermabond. The patient tolerated the procedure well. We will admit her to the floor and proceed with DVT prophylaxis with early ambulation, calf SCDs as well as Lovenox injections. She may also have ice chips tonight and then proceed with a phase 1 clear liquid diet in the morning. We will also start a ADMIN DIR pump for pain control. When she is tolerating at least 60 mL every 30 minutes has adequate pain control with oral pain medication and is ambulating well, we will discharge her home. She will be instructed to proceed with a phase 1 clear liquid diet for the next two weeks and we will then see her in the office. Job ID: [id number] DocumentID: [id number] Dictated Date: 01/19/2019 17:46:06 Check Processing Clerk Date: 01/19/2019 21:33:15 Dictated By: WAI BARKER MD MTDD
[2019-01-19] MEDS: ceFAZolin 2 GM IV Premixed 50 ML IV SCH (23:43)
[2019-01-20] VITALS: BP 129/79
[2019-01-20] MEDS: metroNIDAZOLE 500MG/100ML IVPB 100 ML IV SCH ×2 (03:10→11:49)
[2019-01-20] MEDS: LACTATED RINGERS 1,000 ML IV SCH (03:12)
[2019-01-20 04:00] VITALS: BP 118/71
[2019-01-20] MEDS: ceFAZolin 2 GM IV Premixed 50 ML IV SCH (05:30)
[2019-01-20] MEDS: ONDANSETRON 4 MG/2 ML (SDV) Z0FRAN IVP SCH ×2 (05:31→12:15)
[2019-01-20] MEDS: METOCLOPRAMIDE INJ 10 MG/2 ML (REGLAN) IVP SCH ×2 (05:31→11:49)
[2019-01-20 06:46] LABS: BUN/CREATININE RATIO 15; CALCIUM 8.8 MG/DL (8.5-10.1); CARBON DIOXIDE 24 MMOL/L (21-32); CHLORIDE 106 MMOL/L (98-107); CREATININE SERUM 0.75 MG/DL (0.60-1.30); GFR ESTIMATED > 60; GLUCOSE 146 MG/DL (70-105); SODIUM 140 MMOL/L (135-145)
[2019-01-20 06:48] LABS: HEMOGLOBIN 13.6 G/DL (11.5-16.0); MEAN PLATELET VOLUME 12.2 FL (7.4-10.4); RED CELL DISTRIBUTION WIDTH 14.8 % (10.0-14.5); WHITE BLOOD COUNT 10.9 10^3/uL (4.3-11.0)
[2019-01-20] MEDS: RT-ALBUTEROL SULF 2.5 MG/3 ML PRE-MIX VIAL INH SCH (06:59)
--- NOTE | 2019-01-20 07:05 | NUR ---
ETCO2 STILL IN PLACE; PATIENT WAS ON 3 L AND SATTING 95% SO RT TURNED O2 OFF (ON RA NOW). PATIENT WAS GIVEN A ALBUTEROL SVN BT AND SHE TOLERATED IT WELL. PATIENT IS STILL ON PSYCHIATRIST
[2019-01-20 08:00] VITALS: BP 113/67
[2019-01-20] MEDS ORDERED: SENNA W/DOCUSATE (SENOKOT S) TABLET PO SCH (09:00)
[2019-01-20] MEDS ORDERED: PANTOPRAZOLE 40 MG (PROTONIX) VIAL IV SCH (09:00)
[2019-01-20] MEDS ORDERED: PANTOPRAZOLE 40 MG (PROTONIX) TAB PO SCH (09:00)
[2019-01-20] MEDS ORDERED: RT-ALBUTEROL SULF 2.5 MG/3 ML PRE-MIX VIAL INH SCH (10:00)
--- NOTE | 2019-01-20 11:39 | Progress Note ---
Subjective Date Seen by a Provider: Jan 20, 2019 Time Seen by a Provider: 11:00 Subjective/Events-last exam doing well. pain controlled. ambulating well. room air. tolerating phase 1 clear liquid diet. minimal nausea. Objective Exam Vital Signs Date Time Temp Pulse Resp B/P (MAP) Pulse Ox O2 Delivery O2 Flow Rate FiO2 01/20/19 11:16 94 Room Air 01/20/19 09:00 Nasal Cannula 2.00 01/20/19 08:00 96.4 92 15 113/67 (82) 92 Nasal Cannula 3.00 01/20/19 07:30 20 01/20/19 06:59 95 Nasal Cannula 3.00 01/20/19 04:00 98.0 98 14 118/71 (87) 94 Nasal Cannula 3.00 01/20/19 03:27 93 Nasal Cannula 3.00 01/20/19 00:00 97.3 101 15 129/79 (96) 95 Nasal Cannula 3.00 01/19/19 23:03 96 Nasal Cannula 3.00 01/19/19 22:59 101 135/84 (101) 94 Nasal Cannula 3.00 01/19/19 22:13 Nasal Cannula 2.00 01/19/19 21:47 16 01/19/19 21:00 99 160/67 (98) 94 Nasal Cannula 3.00 01/19/19 20:15 95 Nasal Cannula 01/19/19 20:00 96.8 85 14 124/70 (88) 94 Nasal Cannula 3.00 01/19/19 18:45 Nasal Cannula 3 01/19/19 18:45 97.4 92 17 145/67 (93) 91 Nasal Cannula 3.00 01/19/19 18:30 97.1 15 94 Nasal Cannula 3 01/19/19 18:30 OxyMask 5 01/19/19 18:20 20 96 OxyMask 10 01/19/19 18:15 OxyMask 10 01/19/19 18:10 20 96 54 01/19/19 18:00 14 96 OxyMask 10 01/19/19 18:00 OxyMask 10 01/19/19 17:50 14 93 OxyMask 10 01/19/19 17:42 97.7 10 01/19/19 17:42 OxyMask 10 01/19/19 14:13 Room Air I & O 01/20/19 07:00 Intake Total 2050 ml Output Total 575 ml Balance 1475 ml Capillary Refill : General Appearance: No Apparent Distress HEENT: PERRL/EOMI Neck: Full Range of Motion Respiratory: Chest Non Tender, Lungs Clear, Normal Breath Sounds Cardiovascular: Regular Rate, Rhythm Gastrointestinal: normal bowel sounds, soft, tenderness, other (incisions clean/dry) Extremity: Normal Capillary Refill Neurologic/Psychiatric: Alert, Oriented x3 Skin: Normal Color Lymphatic: No Adenopathy Results Lab Laboratory Tests 01/20/19 05:50: White Blood Count 10.9, Red Blood Count 4.50, Hemoglobin 13.6, Hematocrit 42, Me an Corpuscular Volume 92, Mean Corpuscular Hemoglobin 30, Mean Corpuscular Hemoglobin Concent 33, Red Cell Distribution Width 14.8H, Platelet Count 202, Mean Platelet Volume 12.2H, Sodium Level 140, Potassium Level 4.0, Chloride Level 106, Carbon Dioxide Level 24, Anion Gap 10, Blood Urea Nitrogen 11, Creatinine 0.75, Estimat Glomerular Filtration Rate > 60, BUN/Creatinine Ratio 15, Glucose Level 146H, Calcium Level 8.8 Assessment/Plan Assessment/Plan Assess & Plan/Chief Complaint s/p lap gastric sleeve resection. continue phase 1 clear liquid diet for next 2 weeks. continue ambulation. resume home meds. home soon. WAI BARKER MD Jan 20, 2019 11:39
[2019-01-20] MEDS: ENOXAPARIN 40 MG/0.4 ML (LOVENOX) SYR SC SCH (11:49)
[2019-01-20 12:00] VITALS: BP 120/61
[2019-01-20] MEDS ORDERED: ONDANSETRON 4 MG/2 ML (SDV) Z0FRAN IVP PRN (13:00)
[2019-01-20] MEDS ORDERED: METOCLOPRAMIDE INJ 10 MG/2 ML (REGLAN) IVP PRN (13:00)
--- NOTE | 2019-01-20 13:01 | Anesthesia-General Post-Op ---
General Patient Condition Mental Status/LOC: Same as Preop Cardiovascular: Satisfactory Nausea/Vomiting: Absent Respiratory: Satisfactory Pain: Controlled Complications: Absent Post Op Complications Complications None Follow Up Care/Instructions Patient Instructions None needed. Anesthesia/Patient Condition Patient Condition Patient is doing well, no complaints, stable vital signs, no apparent adverse anesthesia problems. No complications reported per nursing. EMILY ASTUDILLO CRNA Jan 20, 2019 13:01
[2019-01-20 13:10] VITALS: BP 120/61
== END 2019-01-20 13:10 | disposition home or self-care (01) | DRG 621 ==
LOC: EDSTATUS 10:30 → SURG 12:43 → 4TH 18:45
PROVIDERS: ADMIT Surgery; ATTEND Surgery
PROC: 0DB64Z3 Excision of Stomach, Percutaneous Endoscopic Approach, Vertical (ICD-10-PCS; principal; 2019-01-19 15:32)
DX: E66.01 Morbid (severe) obesity due to excess calories (principal); Z68.42 Body mass index [BMI] 45.0-49.9, adult; I10 Essential (primary) hypertension; F41.9 Anxiety disorder, unspecified; F32.9 Major depressive disorder, single episode, unspecified; J45.909 Unspecified asthma, uncomplicated; M81.0 Age-related osteoporosis without current pathological fracture
CPT/HCPCS: 36415; 80048; 85027; 94640; 94760

== ENCOUNTER → 2019-08-01 | Outpatient (CLI) | payer MEDICARE, OTHER ==
[~2019-08-01] MED LIST changes: +HYDR-34 PO; +ONDN4T PO; +PANT40TA2 PO
--- NOTE | 2019-08-01 10:17 | Diagnostic Imaging Report ---
INDICATION: Postmenopausal female. Reports taking medication for osteoporosis, Prolia. History of vertebral fractures and osteoarthritis. History of surgery in the lumbar spine. COMPARISON: None available. FINDINGS: AP Spine L1-L4: [BMD (g/cm2): NA] [T-Score: NA] [Z-Score: NA] [BMD Previous: NA] [BMD % Change: NA] LT Hip Neck: [BMD (g/cm2): 0.842] [T-Score: -1.4] [Z-Score: -0.3] LT Hip Total: [BMD (g/cm2):0.990] [T-Score:-0.1] [Z-Score: 0.7] [BMD Previous: NA] [BMD % Change: NA] RT Hip Neck: [BMD (g/cm2):0.789] [T-Score:-1.8] [Z-Score:-0.6] RT Hip Total: [BMD (g/cm2):0.949] [T-score:-0.5] [Z-Score:0.4] [BMD Previous:NA] [BMD % Change:NA] *Indicates significant change from prior examination based on 95% confidence level. World Health Organization criteria for BMD interpretation classify patients as Normal (T-score at or above -1.0), Osteopenic (T-score between -1.0 and -2.5) or Osteoporotic (T-score at or below -2.5). LIMITATIONS AND MODIFICATION: None. FRACTURE RISK (FRAX SCORE): Not applicable IMPRESSION: 1. Osteopenia (Low bone mass). 2. Baseline examination. 3. See below National Osteoporosis Foundation guidelines on when to potentially initiate pharmacologic therapy. Based on the National Osteoporosis Foundation Guidelines, pharmacologic treatment should be initiated in any of the following, unless clinical conditions suggest otherwise: * Any patient with prior fragility fracture of the hip or vertebrae. A spine fracture indicates 5X risk for subsequent spine fracture and 2X risk for subsequent hip fracture. * Osteoporosis (T-score <-2.5). * Postmenopausal women and men age 50 and older with low bone mass/osteopenia (T-score between -1.0 and -2.5) by DXA and 10-year major osteoporotic fracture greater than 20% or a 10-year probability of hip fracture greater than 3%. These fracture risks are supplied above in the FRAX score, if applicable. * Clinician judgement and/or patient preferences may indicate treatment for people with 10-year fracture probabilities above or below these levels. Dictated by: Dictated on workstation # [id number]
== END ==
LOC: RAD 08:54
PROVIDERS: ATTEND Nurse Practitioner
DX: M85.80 Other specified disorders of bone density and structure, unspecified site (principal)
CPT/HCPCS: 77080

== ENCOUNTER 2019-12-02 10:37 | Emergency (ER) | payer MEDICARE, OTHER ==
[~2019-12-02] VITALS: Ht 160 cm; Wt 87.0 kg
[~2019-12-02 10:37] MED LIST changes: +ACHD5005 PO; -HYDR-3812 PO
--- OUTSIDE RECORDS SUMMARY | 2019-12-02 10:41 | XMS REPORT | Continuity of Care Document ---
Author Organization Unknown Address Unknown Phone Unavailable Allergies Active Description Code Type Severity Reaction Onset Reported/Identified Relationship to Patient Clinical Status Yes NKANo Known Allergies NKA Miscellaneous Allergy Unknown N/A 05/19/2006 Yes No Known Drug Allergies [id number] Drug Allergy Unknown N/A 01/12/2019 Medications There is no data. Problems Date Dx Coded Attending Type Code Diagnosis Diagnosed By 08/08/2018 ZBE HOLLINGSWORTH MD, Ot J32 .9 CHRONIC SINUSITIS, UNSPECIFIED 08/08/2018 ZEB HOLLINGSWORTH MD Ot J34 .3 HYPERTROPHY OF NASAL TURBINATES 08/08/2018 ZEB HOLLINGSWORTH MD Ot Z01.810 ENCOUNTER FOR PREPROCEDURAL CARDIOVASCUL 08/08/2018 ZEB HOLLINGSWORTH MD Ot Z01.811 ENCOUNTER FOR PREPROCEDURAL RESPIRATORY 08/08/2018 ZEB HOLLINGSWORTH MD Ot Z01.812 ENCOUNTER FOR PREPROCEDURAL LABORATORY E 08/08/2018 ZEB HOLLINGSWORTH MD Ot Z11 .2 ENCOUNTER FOR SCREENING FOR OTHER BACTER 08/09/2018 ZEB HOLLINGSWORTH MD Ot J32 .9 CHRONIC SINUSITIS, UNSPECIFIED 08/09/2018 ZEB HOLLINGSWORTH MD Ot J34 .3 HYPERTROPHY OF NASAL TURBINATES 08/09/2018 ZEB HOLLINGSWORTH MD Ot Z01.810 ENCOUNTER FOR PREPROCEDURAL CARDIOVASCUL 08/09/2018 ZEB HOLLINGSWORTH MD Ot Z01.811 ENCOUNTER FOR PREPROCEDURAL RESPIRATORY 08/09/2018 ZEB HOLLINGSWORTH MD Ot Z01.812 ENCOUNTER FOR PREPROCEDURAL LABORATORY E 08/09/2018 ZEB HOLLINGSWORTH MD Ot Z11 .2 ENCOUNTER FOR SCREENING FOR OTHER BACTER 08/11/2018 ZEB HOLLINGSWORTH MD Ot E66 .9 OBESITY, UNSPECIFIED 08/11/2018 ZEB HOLLINGSWORTH MD Ot F32 .9 MAJOR DEPRESSIVE DISORDER, SINGLE EPISOD 08/11/2018 ZEB HOLLINGSWORTH MD Ot J32 .0 CHRONIC MAXILLARY SINUSITIS 08/11/2018 ZEB HOLLINGSWORTH MD Ot J32 .2 CHRONIC ETHMOIDAL SINUSITIS 08/11/2018 ZEB HOLLINGSWORTH MD P Ot J34 .3 HYPERTROPHY OF NASAL TURBINATES 08/11/2018 ZEB HOLLINGSWORTH MD Ot J45.909 UNSPECIFIED ASTHMA, UNCOMPLICATED 08/11/2018 ZEB HOLLINGSWORTH MD Ot M81 .0 AGE-RELATED OSTEOPOROSIS W/O CURRENT PAT 08/11/2018 ZEB HOLLINGSWORTH MD Ot Z68.42 BODY MASS INDEX (BMI) 45.0-49.9, ADULT 08/11/2018 ZEB HOLLINGSWORTH MD Ot Z79.899 OTHER SENIOR AIR DIRECTOR (CURRENT) DRUG THERAPY 08/12/2018 ZEB HOLLINGSWORTH MD Ot E66 .9 OBESITY, UNSPECIFIED 08/12/2018 ZEB HOLLINGSWORTH MD Ot F32 .9 MAJOR DEPRESSIVE DISORDER, SINGLE EPISOD 08/12/2018 ZEB HOLLINGSWORTH MD P Ot J32 .0 CHRONIC MAXILLARY SINUSITIS 08/12/2018 ZEB HOLLINGSWORTH MD P Ot J32 .2 CHRONIC ETHMOIDAL SINUSITIS 08/12/2018 ZEB HOLLINGSWORTH MD Ot J34 .3 HYPERTROPHY OF NASAL TURBINATES 08/12/2018 ZEB HOLLINGSWORTH MD Ot J45.909 UNSPECIFIED ASTHMA, UNCOMPLICATED 08/12/2018 ZEB HOLLINGSWORTH MD Ot M81 .0 AGE-RELATED OSTEOPOROSIS W/O CURRENT PAT 08/12/2018 ZEB HOLLINGSWORTH MD Ot Z68.42 BODY MASS INDEX (BMI) 45.0-49.9, ADULT 08/12/2018 ZEB HOLLINGSWORTH MD Ot Z79.899 OTHER DETENTION (CURRENT) DRUG THERAPY 08/15/2018 ZEB HOLLINGSWORTH MD Ot E66 .9 OBESITY, UNSPECIFIED 08/15/2018 ZEB HOLLINGSWORTH MD Ot F32 .9 MAJOR DEPRESSIVE DISORDER, SINGLE EPISOD 08/15/2018 ZEB HOLLINGSWORTH MD P Ot J32 .0 CHRONIC MAXILLARY SINUSITIS 08/15/2018 ZEB HOLLINGSWORTH MD P Ot J32 .2 CHRONIC ETHMOIDAL SINUSITIS 08/15/2018 ZEB HOLLINGSWORTH MD P Ot J34 .3 HYPERTROPHY OF NASAL TURBINATES 08/15/2018 ZEB HOLLINGSWORTH MD Ot J45.909 UNSPECIFIED ASTHMA, UNCOMPLICATED 08/15/2018 ZEB HOLLINGSWORTH MD Ot M81 .0 AGE-RELATED OSTEOPOROSIS W/O CURRENT PAT 08/15/2018 ZEB HOLLINGSWORTH MD Ot Z68.42 BODY MASS INDEX (BMI) 45.0-49.9, ADULT 08/15/2018 ZEB HOLLINGSWORTH MD Ot Z79.899 OTHER SENIOR AIR DIRECTOR (CURRENT) DRUG THERAPY 08/17/2018 ZEB HOLLINGSWORTH MD Ot E66 .9 OBESITY, UNSPECIFIED 08/17/2018 ZEB HOLLINGSWORTH MD Ot F32 .9 MAJOR DEPRESSIVE DISORDER, SINGLE EPISOD 08/17/2018 ZEB HOLLINGSWORTH MD Ot J32 .0 CHRONIC MAXILLARY SINUSITIS 08/17/2018 ZEB HOLLINGSWORTH MD P Ot J32 .2 CHRONIC ETHMOIDAL SINUSITIS 08/17/2018 ZEB HOLLINGSWORTH MD P Ot J34 .3 HYPERTROPHY OF NASAL TURBINATES 08/17/2018 ZEB HOLLINGSWORTH MD Ot J45.909 UNSPECIFIED ASTHMA, UNCOMPLICATED 08/17/2018 ZEB HOLLINGSWORTH MD Ot M81 .0 AGE-RELATED OSTEOPOROSIS W/O CURRENT PAT 08/17/2018 ZEB HOLLINGSWORTH MD Ot Z68.42 BODY MASS INDEX (BMI) 45.0-49.9, ADULT 08/17/2018 ZEB HOLLINGSWORTH MD Ot Z79.899 OTHER DETENTION (CURRENT) DRUG THERAPY 08/24/2018 ZEB HOLLINGSWORTH MD Ot E66 .9 OBESITY, UNSPECIFIED 08/24/2018 ZEB HOLLINGSWORTH MD Ot F32 .9 MAJOR DEPRESSIVE DISORDER, SINGLE EPISOD 08/24/2018 ZEB HOLLINGSWORTH MD Ot J32 .0 CHRONIC MAXILLARY SINUSITIS 08/24/2018 ZEB HOLLINGSWORTH MD P Ot J32 .2 CHRONIC ETHMOIDAL SINUSITIS 08/24/2018 ZEB HOLLINGSWORTH MD Ot J34 .3 HYPERTROPHY OF NASAL TURBINATES 08/24/2018 ZEB HOLLINGSWORTH MD Ot J45.909 UNSPECIFIED ASTHMA, UNCOMPLICATED 08/24/2018 ZEB HOLLINGSWORTH MD Ot M81 .0 AGE-RELATED OSTEOPOROSIS W/O CURRENT PAT 08/24/2018 ZEB HOLLINGSWORTH MD Ot Z68.42 BODY MASS INDEX (BMI) 45.0-49.9, ADULT 08/24/2018 ZEB HOLLINGSWORTH MD Ot Z79.899 OTHER SENIOR AIR DIRECTOR (CURRENT) DRUG THERAPY 12/28/2018 WAI BARKER MD, Ot1.9 GASTRO-ESOPHAGEAL REFLUX DISEASE WITHOUT 12/28/2018 WAI BARKER MD, Ot Z01.81 8 ENCOUNTER FOR OTHER PREPROCEDURAL EXAMIN 01/12/2019 WAI BARKER MD, Ot1.9 GASTRO-ESOPHAGEAL REFLUX DISEASE WITHOUT 01/12/2019 WAI BARKER MD, Ot Z01.81 8 ENCOUNTER FOR OTHER PREPROCEDURAL EXAMIN 01/12/2019 WAI BARKER MD, Ot E66.01 MORBID (SEVERE) OBESITY DUE TO EXCESS CA 01/12/2019 WAI BARKER MD Ot Z01.81 8 ENCOUNTER FOR OTHER PREPROCEDURAL EXAMIN 01/19/2019 WAI BARKER MD, Ot E66.01 MORBID (SEVERE) OBESITY DUE TO EXCESS CA 01/19/2019 WAI BARKER MD, Ot Z01.81 8 ENCOUNTER FOR OTHER PREPROCEDURAL EXAMIN 01/20/2019 WAI BARKER MD, Ot E66.01 MORBID (SEVERE) OBESITY DUE TO EXCESS CA 01/20/2019 WAI BARKER MD, Ot F32.9 MAJOR DEPRESSIVE DISORDER, SINGLE EPISOD 01/20/2019 WAI BARKER MD, Ot F41.9 ANXIETY DISORDER, UNSPECIFIED 01/20/2019 WAI BARKER MD, Ot I10 ESSENTIAL (PRIMARY) HYPERTENSION 01/20/2019 WAI BARKER MD, Ot J45.90 9 UNSPECIFIED ASTHMA, UNCOMPLICATED 01/20/2019 WAI BARKER MD, Ot M81.0 AGE-RELATED OSTEOPOROSIS W/O CURRENT PAT 01/20/2019 WAI BARKER MD, Ot Z68.42 BODY MASS INDEX (BMI) 45.0-49.9, ADULT 01/21/2019 WAI BARKER MD, Ot E66.01 MORBID (SEVERE) OBESITY DUE TO EXCESS CA 01/21/2019 WAI BARKER MD, Ot Z01.81 8 ENCOUNTER FOR OTHER PREPROCEDURAL EXAMIN 07/28/2019 BEBO CHACON POT FILLER Ot M81.0 AGE-RELATED OSTEOPOROSIS W/O CURRENT PAT 08/01/2019 WAI BARKER MD, Ot K21.9 GASTRO-ESOPHAGEAL REFLUX DISEASE WITHOUT 08/01/2019 WAI BARKER MD, Ot Z01.81 8 ENCOUNTER FOR OTHER PREPROCEDURAL EXAMIN 08/01/2019 BEBO CHACON POT FILLER Ot M81.0 AGE-RELATED OSTEOPOROSIS W/O CURRENT PAT 08/02/2019 BEBO CHACON POT FILLER Ot M81.0 AGE-RELATED OSTEOPOROSIS W/O CURRENT PAT 08/02/2019 BEBO CHACON POT FILLER Ot M85.80 OTH DISRD OF BONE DENSITY AND STRUCTURE, 08/22/2019 BEBO CHACON POT FILLER Ot M85.80 [facility] DISRD OF BONE DENSITY AND STRUCTURE, Procedures Code Description Performed By Hermelindo warner On [id number] EX CISION OF STOMACH, PERCUTANEOUS ENDOSC 01/19/2019 Results Test Result Range Whole blood basic metabolic panel - 07/29 07/16 10:04 Serum or plasma sodium measurement (moles/volume) 140 mmol/L 135-145 Serum or plasma potassium measurement (moles/volume) 3.9 mmol/L 3.6-5.0 Serum or plasma chloride measurement (moles/volume) 105 mmol/L 98-107 Carbon dioxide 25 mmol/L 21-32 Serum or plasma anion gap determination (moles/volume) 10 mmol/L 5-14 Serum or plasma urea nitrogen measurement (mass/volume ) 13 mg/dL 7-18 Serum or plasma creatinine measurement (mass/volume) 0.72 mg/dL 0.60-1.30 Serum or plasma urea nitrogen/creatinine mass ratio 18 NRG Serum or plasma creatinine measurement w ith calculation of estimated glomerular filtration rate > NRG Serum or plasma glucose measurement (mass/volume) 88 mg/dL 70-105 Serum or plasma calcium measurement (mass/volume) 9.7 mg/dL 8.5-10.1 Methicillin resistant Staphylococcus aur eus (MRSA) screening culture - 08/08/18 10:04 Methicillin resistant Staphylococcus aureus (MRSA) scr eening culture NEG NRG CMP - 12/06/18 08:27 GLUCOSE 107 mg/dL 65-99 UREA NITROGEN (BUN) 14 mg/dL 7-25 CREATININE 0.76 mg/dL 0.50-0.99 eGFR NON-AFR. RUSSIAN 81 mL/min/1.73m2 > OR = 60 eGFR 94 mL/min/1.73m2 > OR = 60 BUN/CREATININE RATIO NOT APPLICABLE (calc) 6-22 SODIUM 142 mmol/L 135-146 POTASSIUM 4.2 mmol/L 3.5-5.3 CHLORIDE 105 mmol/L 98-110 CARBON DIOXIDE 29 mmol/L 20-32 CALCIUM 9.2 mg/dL 8.6-10.4 PROTEIN, TOTAL 6.3 g/dL 6.1-8.1 ALBUMIN 4.0 g/dL 3.6-5.1 GLOBULIN 2.3 g/dL (calc) 1.9-3.7 ALBUMIN/GLOBULIN RATIO 1.7 (calc) 1.0-2. 5 BILIRUBIN, TOTAL 1.0 mg/dL 0.2-1.2 ALKALINE PHOSPHATASE 77 U/L 33-130 AST 16 U/L 10-35 ALT 16 U/L 6-29 CBC - 12/06/18 08:27 WHITE BLOOD CELL COUNT 7.0 Thousand/uL 3 .8-10.8 RED BLOOD CELL COUNT 4.87 Million/uL 3.8 0-5.10 HEMOGLOBIN 14.6 g/dL 11.7-15.5 HEMATOCRIT 44.3 % 35.0-45.0 MCV 91.0 fL 80.0-100.0 MCH 30.0 pg 27.0-33.0 MCHC 33.0 g/dL 32.0-36.0 RDW 13.0 % 11.0-15.0 PLATELET COUNT 230 Thousand/uL 140-400 MPV 10.9 fL 7.5-12.5 ABSOLUTE NEUTROPHILS 4571 cells/uL 1500- 7800 ABSOLUTE LYMPHOCYTES 1596 cells/uL 850-3 900 ABSOLUTE MONOCYTES 539 cells/uL 200-950 ABSOLUTE EOSINOPHILS 231 cells/uL 15-500 ABSOLUTE BASOPHILS 63 cells/uL 0-200 NEUTROPHILS 65.3 % NRG LYMPHOCYTES 22.8 % NRG MONOCYTES 7.7 % NRG EOSINOPHILS 3.3 % NRG BASOPHILS 0.9 % NRG VITAMIN D, 25-H - 12/06/18 08:27 VITAMIN D,25-OH,TOTAL,IA 30 ng/mL 30-10 0 Complete blood count (CBC) with automate d white blood cell (WBC) differential - 01/12/19 09:30 Blood leukocytes automated count (number/volume) 9.1 10*3/uL 4.3-11.0 Blood erythrocytes automated count (number/volume) 5.05 10*6/uL 4.35-5.85 Venous blood hemoglobin measurement (mass/volume) 15.3 g/dL 11.5-16.0 Blood hematocrit (volume fraction) 46 % 35-52 Automated erythrocyte mean corpuscular volume 91 [ foz_us] 80-99 Automated erythrocyte mean corpuscular h emoglobin (mass per erythrocyte) 30 pg 25-34 Automated erythrocyte mean corpuscular h emoglobin concentration measurement (mass/volume) 33 g/dL 32-36 Automated erythrocyte distribution width ratio 14. 8 % 10.0- 14.5 Automated blood platelet count [...] 10*3 1.0-4.0 Blood monocytes automated count (number/volume) 0. 7 10*3 0.0-1.0 Automated eosinophil count 0.1 10*3/uL 0 .0-0.3 Automated blood basophil count (count/volume) 0.0 10*3/uL 0.0-0.1 Methicillin resistant Staphylococcus aur eus (MRSA) screening culture - 01/12/19 09:30 Methicillin resistant Staphylococcus aureus (MRSA) scr eening culture NEG NRG Whole blood basic metabolic panel - 12/27 12/14 05:50 Serum or plasma sodium measurement (moles/volume) 140 mmol/L 135-145 Serum or plasma potassium measurement (moles/volume) 4.0 mmol/L 3.6-5.0 Serum or plasma chloride measurement (moles/volume) 106 mmol/L 98-107 Carbon dioxide 24 mmol/L 21-32 Serum or plasma anion gap determination (moles/volume) 10 mmol/L 5-14 Serum or plasma urea nitrogen measurement (mass/volume ) 11 mg/dL 7-18 Serum or plasma creatinine measurement (mass/volume) 0.75 mg/dL 0.60-1.30 Serum or plasma urea nitrogen/creatinine mass ratio 15 NRG Serum or plasma creatinine measurement w ith calculation of estimated glomerular filtration rate > NRG Serum or plasma glucose measurement (mass/volume) 146 mg/dL 70-105 Serum or plasma calcium measurement (mass/volume) 8.8 mg/dL 8.5-10.1 Automated blood complete blood count (he mogram) panel - 01/20/19 05:50 Blood leukocytes automated count (number/volume) 10.9 10*3/uL 4.3-11.0 Blood erythrocytes automated count (number/volume) 4.50 10*6/uL 4.35-5.85 Venous blood hemoglobin measurement (mass/volume) 13.6 g/dL 11.5-16.0 Blood hematocrit (volume fraction) 42 % 35-52 Automated erythrocyte mean corpuscular volume 92 [ foz_us] 80-99 Automated erythrocyte mean corpuscular h emoglobin (mass per erythrocyte) 30 pg 25-34 Automated erythrocyte mean corpuscular h emoglobin concentration measurement (mass/volume) 33 g/dL 32-36 Automated erythrocyte distribution width ratio 14. 8 % 10.0- 14.5 Automated blood platelet count (count/volume) 202 10*3/uL 130-400 Automated blood platelet mean volume measurement 12.2 [foz_us] 7.4-10.4 CULTURE, URINE - 03/14/19 17:16 CULTURE, URINE, ROUTINE SEE NOTE NRG Encounters ACCT No. Visit Date/Time Discharge Status Pt. Type Provider Facility Loc./Unit Complaint [id number] 07/19/2019 13:45:00 07/19/2019 23:59: 59 CLS Out[id number] 03/14/2019 17:00:00 Document Registration [id number] 12/06/2018 08:30:00 Document Registration [id number] 08/01/2019 08:54:00 23:59:59 CLS Outpatient BEBO CHACON APRN [facility] RAD OSTEOPOROSIS [id number] 01/19/2019 12:43:00 13:10:00 DIS Inpatient WAI BARKER MD [facility] 4TH MORBID OBESITY [id number] 01/12/2019 08:53:00 14:40:00 DIS Outpatient WAI BARKER MD [facility] PREOP MORBID OBESITY [id number] 12/22/2018 08:35:00 23:59:59 CLS Outpatient WAI BARKER MD [facility] RAD REFLUX [id number] 08/11/2018 06:28:00 13:30:00 DIS Outpatient EDEL EVANS, ZEB Lewis [facility] SDC HYPERTROPHY INFERIOR TU RBINATES [id number] 08/08/2018 09:27:00 10:20:00 DIS Outpatient EDEL EVANS, ZEB Lewis [facility] PREOP ESS, DANA. REDUCTION INF . TURBINATES
--- NOTE | 2019-12-02 10:55 | ED EENT ---
History of Present Illness General Chief Complaint: Trauma-Non Activation Stated Complaint: FALL - MOUTH PAIN Nursing Triage Note: SEE TRIAGE Source: patient Exam Limitations: no limitations History of Present Illness Date Seen by Provider: Dec 02, 2019 Time Seen by Provider: 10:53 Initial Comments Patient was here the hospital to visit a friend when she tripped and fell in the hallway, landed face first knocking tooth #8 out of its normal alignment Location Injury Occurred: HOSPITAL Timing/Duration: abrupt Severity: moderate Location: dental Prearrival Treatment: no prearrival treatment Associated Symptoms: denies symptoms Allergies and Home Medications Allergies Coded Allergies: No Known Drug Allergies (Unverified , 01/12/19) Home Medications Alprazolam 0.25 Mg Tablet, 0.25 MG PO PRN PRN for ANXIETY, (Reported) Cholecalciferol (Vitamin D3) 50,000 Unit Capsule, 50,000 UNIT PO WEEK, (Reported) Denosumab 60 Mg/1 Ml Disp.syrin, 60 MG SQ TWICE YEARLY, (Reported) Doxepin HCl 100 Mg Capsule, 100 MG PO HS, (Reported) Fluticasone/Salmeterol 1 Each Blst.w.dev, 1 EACH IH BID, (Reported) Guaifenesin 600 Mg Tab.er.12h, 600 MG PO BID, (Reported) Hydrocodone Bit/Acetaminophen 1 Ea Tablet, 1 EACH PO Q4H PRN for PAIN-MODERATE Prescribed by: WAI BARKER on 01/19/19 1305 Ibuprofen 800 Mg Tablet, 800 MG PO BID, (Reported) Ondansetron HCl 4 Mg Tab, 4 MG PO Q4H Prescribed by: WAI BARKER on 01/19/19 1305 Pantoprazole Sodium 40 Mg Tablet.dr, 40 MG PO DAILY Prescribed by: WAI BARKER on 01/19/19 1305 Paroxetine HCl 40 Mg Tablet, 40 MG PO HS, (Reported) Patient Home Medication List Home Medication List Reviewed: Yes Review of Systems Review of Systems Constitutional: see HPI Eyes: No Symptoms Reported Ears: No Symptoms Reported Nose: no symptoms reported Mouth: see HPI Throat: no symptoms reported Respiratory: no symptoms reported Cardiovascular: no symptoms reported Past Eaojppa-Luhetz-Xjbyic Hx Patient Social History Alcohol Use: Denies Use Alcohol Beverage of Choice: Wine Recreational Drug Use: No Smoking Status: Never a Smoker 2nd Hand Smoke Exposure: No Recent Foreign Travel: No Contact w/Someone Who Travel: No Recent Hopitalizations: No Physical Abuse: No Sexual Abuse: No Immunizations Up To Date Tetanus Booster (TDap): Less than 5yrs Date of Pneumonia Vaccine: Mar 28, 2018 Date of Influenza Vaccine: Mar 28, 2018 Seasonal Allergies Seasonal Allergies: Yes Past Medical History Surgeries: Yes (lower back x2, neck sx, bilat CTR, breast lumpectomy) Gallbladder, Hysterectomy, Tonsillectomy Respiratory: Yes (TESTED FOR SLEEP APNEA-DECEMBER 2018 ( NO RESULTS YET)) Asthma Cardiac: No Neurological: Yes (seizure after shortly after delivering last baby none since) 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 Sexually Transmitted Disease: No HIV/AIDS: No Genitourinary: Yes (bladder control) Gastrointestinal: Yes (HAD GASTRIC SLEEVE) Irritable Bowel Musculoskeletal: Yes Osteoporosis, Arthritis, Chronic Back Pain Endocrine: No HEENT: Yes (READING GLASSES) Loss of Vision: Denies Hearing Impairment: Denies Cancer: Yes Skin Psychosocial: Yes Anxiety, Depression Integumentary: No Blood Disorders: No Adverse Reaction/Blood Tranf: No (N/A) Physical Exam Vital Signs Vital Signs - First Documented 12/02/19 10:40 Temp 36.3 Pulse 82 Resp 18 B/P (MAP) 133/70 (91) Pulse Ox 97 Height, Weight, BMI Height: 5'3.00" Weight: 259lbs. 0.0oz. [age]yo; 45.9 BMI Method: General Appearance: WD/WN, no apparent distress Eyes: bilateral eye normal inspection, bilateral eye PERRL, bilateral eye EOMI Ears: bilateral ear auricle normal, bilateral ear canal normal, bilateral ear TM normal Mouth/Throat: normal mouth inspection, pharynx normal, other (minimal bleeding, small laceration to the back of the lip., These are very small and did not require primary closure. However there does appear to be in intrusion injury of tooth #8. It is not mobile. 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 Decision time for Depature: 11:16 Referrals: BERTIN CAMPOS MD (PCP/Family) Primary Care Physician Patient Instructions: Dental Pain Add. Discharge Instructions: 1. Very soft diet that requires minimal chewing. This would be things like pudding, mashed potatoes, soup. Follow-up with your dentist on wednesday--I was jayla chávez to contact them, they don't have after after-hours number listed. To call them Wednesday at 8 AM to make an appointment to be seen. Antibiotics as directed, pain medication as directed. All discharge instructions reviewed with patient and/or family. Voiced understanding. Scripts Penicillin V Potassium (Penicillin V Potassium) 500 Mg Tablet 500 MG PO Q6H, #28 TAB Prov: SHAILA OLEARY APRN 12/02/19 SHAILA OLEARY APRN Dec 02, 2019 10:54
[2019-12-02] MEDS ORDERED: HYDR-3870 PO (11:23)
[2019-12-02] MEDS ORDERED: PENI500T PO (11:23)
--- NOTE | 2019-12-02 11:31 | Diagnostic Imaging Report ---
CLINICAL INDICATION: Patient tripped and fell. Patient has pain in right front tooth and abrasion upper lip. EXAM: Axial Head CT without IV contrast with sagittal and coronal reformations. Axial CT scan of the cervical spine with sagittal and coronal reformations. Auto Exposure Controls were utilized during the CT exam to meet ALARA standards for radiation dose reduction. COMPARISON: None. FINDINGS: Head CT: There is no evidence of acute cerebral infarct, intracranial hemorrhage, or gross mass effect. The brain parenchymal volume appears appropriate for patient's age. There is normal borja-white matter distinction. There is no significant midline shift or herniation. There is no evidence of hydrocephalus. The basal cisterns are unremarkable. The skull, extracranial soft tissue, and orbits are unremarkable. There is a small mucus retention cyst left maxillary sinus and right maxillary sinus. There is mild ethmoid sinus mucosal thickening. Temporal bones show no significant abnormality. Cervical spine: There is no acute cervical spine fracture or dislocation. There are postoperative changes with C3-C5 anterior cervical disc fusion hardware seen. There is cervical spine degenerative disease or vertebral body spurs and facet arthropathy. There is no significant central canal narrowing. There is severe left C4-C5 and C5-C6 neural foramen narrowing and moderate to severe right C5-C6 neural foramen narrowing. There is no significant neck soft tissue abnormality. Visualized upper lung acevedo are clear. IMPRESSION: 1: There is no evidence of acute intracranial process. There is no skull fracture. 2: Cervical spine degenerative disease with no acute fracture or dislocation. Dictated by: Dictated on workstation # [id number]
[2019-12-02 12:23] VITALS: BP 133/70
== END 2019-12-02 11:38 | disposition home or self-care (01) ==
LOC: EDUNIT# 10:37 → ER 10:38
DX: S03.2XXA Dislocation of tooth, initial encounter (principal); J45.909 Unspecified asthma, uncomplicated; F41.9 Anxiety disorder, unspecified; F32.9 Major depressive disorder, single episode, unspecified; Z79.51 Long term (current) use of inhaled steroids; Z85.828 Personal history of other malignant neoplasm of skin; W01.0XXA Fall on same level from slipping, tripping and stumbling without subsequent striking against object, initial encounter; Y92.239 Unspecified place in hospital as the place of occurrence of the external cause
CPT/HCPCS: 70450; 72125

== ENCOUNTER 2023-04-21 05:53 | Outpatient (CLI) | payer MEDICARE, OTHER ==
[~2023-04-21] VITALS: Ht 157.5 cm; Wt 112.9 kg
[~2023-04-21 05:53] MED LIST changes: +ALBU8.5H6 IH; +ALPR.25T PO; -ALPR0.254 PO; -CALC600T12 PO; +CALC600T91 PO; +HYDR-3870 PO; +PARO-135 PO; -PARO40TA PO; +PENI500T PO; -RT-ALBUINH IH
[2023-04-23] MEDS ORDERED: ATOR10TA66 PO (16:08)
[2023-04-23] MEDS ORDERED: ALEN70TA80 PO (16:08)
[2023-04-23] MEDS ORDERED: BACL10TA PO (16:08)
== END 2023-04-23 16:21 | disposition home or self-care (01) ==
LOC: PREOP 05:53
PROVIDERS: ATTEND Surgery
DX: Z01.818 Encounter for other preprocedural examination (principal)

== ENCOUNTER 2023-05-04 11:34 | Day surgery (SDC) | payer MEDICARE, OTHER ==
[~2023-05-04] VITALS: Ht 157.5 cm; Wt 112.9 kg
[~2023-05-04 11:34] MED LIST changes: +ALEN70TA80 PO; +ATOR10TA66 PO; +BACL10TA PO
[2023-05-04] MEDS ORDERED: LACTATED RINGERS 1,000 ML 1,000 ML IV STA (11:40)
[2023-05-04 12:04] VITALS: BP 186/98
--- NOTE | 2023-05-04 12:59 | Progress Note-Pre Operative ---
Pre-Operative Progress Note Date H&P Reviewed: May 04, 2023 Time H&P Reviewed: 12:59 History & Physical: H&P Reviewed, Patient Examed, No changes noted Pre-Operative Diagnosis: screening colonoscopy LINCOLN KIM DO May 04, 2023 12:59
--- NOTE | 2023-05-04 13:59 | Anesthesia-General Post-Op ---
MAC Patient Condition Mental Status/LOC: Same as Preop Cardiovascular: Satisfactory Nausea/Vomiting: Absent Respiratory: Satisfactory Pain: Controlled Complications: Absent Post Op Complications Complications None Follow Up Care/Instructions Patient Instructions None needed. Anesthesiology Discharge Order Discharge Order Patient is doing well, no complaints, stable vital signs, no apparent adverse anesthesia problems. No complications reported per nursing. TAHMINA FRIEND CRNA May 04, 2023 13:59
[2023-05-04] MEDS ORDERED: proPOfol INJECTION 200 MG/20 ML VIAL IV ONE (14:31)
--- NOTE | 2023-05-04 14:34 | Progress Note-Post Operative ---
Post-Operative Progess Note Surgeon (s)/Laminating Machine Operator (s) Surgeon LINCOLN KIM DO Laminating Machine Operator: n/a Pre-Operative Diagnosis screening colonoscopy Post-Operative Diagnosis Incomplete colonoscopy and ascending colon polyp Procedure & Operative Findings Date of Procedure 05/04/23 Procedure Performed/Findings Incomplete colonoscopy with hot biopsy polypectomy Anesthesia Type per DIRECTOR OF FINANCIAL PLANNING Estimated Blood Loss Estimated blood loss (mL): none Specimens/Packing Specimens Removed Ascending Colon Polyp x1 LINCOLN KIM DO May 04, 2023 14:34
--- NOTE | 2023-05-04 14:36 | Discharge Inst-Simple/Standard ---
Discharge Inst-Standard Patient Instructions/Follow Up Plan of Care/Instructions/FU: 2 Weeks Sujit to order rectal CT scan with contrast Activity as Tolerated: Yes Discharge Diet: Regular Diet LINCOLN KIM DO May 04, 2023 14:36
[2023-05-04 14:44] VITALS: BP 163/82
[2023-05-04 14:45] VITALS: BP 160/81
[2023-05-04] MEDS ORDERED: ONDANSETRON INJECTION 4 MG/2 ML (SDV) ONE (15:07)
[2023-05-04] MEDS ORDERED: ONDANSETRON INJECTION 4 MG/2 ML (SDV) IVP ONE (15:30)
[2023-05-04 15:45] VITALS: BP 160/81
--- NOTE | 2023-05-04 23:32 | OPERATIVE REPORT ---
DATE OF SERVICE: 05/04/2023 PREOPERATIVE DIAGNOSIS: Screening colonoscopy. POSTOPERATIVE DIAGNOSIS: Incomplete colonoscopy and ascending colon polyp. SURGEON: Lincoln Beckett DO ANESTHESIA: Per [employer] WORK[employer] SPECIALIST. ESTIMATED BLOOD LOSS: None. COMPLICATIONS: None. INDICATIONS: The patient is a 72-year-old female, needing screening colonoscopy. She understands risks and benefits of procedure and wished to proceed. Consent was signed in chart. DESCRIPTION OF PROCEDURE: The patient was taken to endoscopy suite, placed in left lateral recumbent position. Timeout was performed. Digital rectal exam was performed. No palpable polyps, masses or ulcerations. Scope was inserted in the rectum, advanced all the way through the rectum into the sigmoid colon. The patient will be repositioned multiple times and then I was able to get scope to start progressing again. The scope was then continued to be advanced, when I was able to get the scope advanced all the way to the ascending colon, but then could no longer get it further. We repositioned the patient multiple times without any further success. At this point, we decided to go ahead and start withdrawing the scope. There is a polyp in the ascending colon, which hot biopsy polypectomy was performed. Scope was then continuously retracted back. No polyps, masses or ulcerations in the remainder of the ascending, transverse, descending and sigmoid colon. Once in the rectum, scope was inserted and retracted multiple times, noting no other pathology. Scope was slowly retracted back until completely removed. The patient tolerated the procedure well without any complications, taken to recovery room in stable condition. RECOMMENDATIONS: The patient [ ] CT scan of the abdomen and pelvis with rectal contrast to further evaluate the rest of the colon. This will be ordered as an outpatient since we did hot biopsy polypectomy performed. The patient will need repeat colonoscopy based on pathology and CT scan with rectal contrast results. Job ID: [id number] DocumentID: [id number] Dictated Date: 05/04/2023 14:35:13 Chemical Unit Operator Date: 05/04/2023 23:30:00 Dictated By: LINCOLN BECKETT DO
== END 2023-05-04 15:45 | disposition home or self-care (01) ==
LOC: ENDO 11:34
PROVIDERS: ATTEND Surgery
DX: Z12.11 Encounter for screening for malignant neoplasm of colon (principal); D12.2 Benign neoplasm of ascending colon; E66.9 Obesity, unspecified; Z68.42 Body mass index [BMI] 45.0-49.9, adult
CPT/HCPCS: 88305

== ENCOUNTER → 2023-05-31 | Outpatient (CLI) | payer MEDICARE ==
--- NOTE | 2023-05-31 10:25 | Diagnostic Imaging Report ---
PROCEDURE: CT abdomen and pelvis without contrast. TECHNIQUE: Multiple contiguous axial images were obtained through the abdomen and pelvis without the use of intravenous contrast. Auto Exposure Controls were utilized during the CT exam to meet ALARA standards for radiation dose reduction. INDICATION: History of recent incomplete colonoscopy. COMPARISON: None FINDINGS: Included portions of the lung bases show multiple subpleural micronodules of the left lower lobe. Largest visualized measures 8 to [address] ABDOMEN: Rectal contrast was administered. Contrast is refluxed to the mid ascending colon. Cecum is unopacified. No large intraluminal filling defect or apple core lesion is identified. Please note, polyp or other early colonic malignancy cannot be entirely excluded based on this exam. Small bowel loops are nondilated. Normal appendix is identified. Patient is status post previous gastric sleeve surgery. Small hiatal hernia is noted. Multiple benign calcified splenic and hepatic granuloma are noted. Otherwise, the spleen, liver, kidneys, adrenal glands, and pancreas have an unremarkable noncontrast CT appearance. There is no loculated fluid collection, free fluid or free air within the abdomen. No abnormal mesenteric or retroperitoneal adenopathy is seen. Osseous structures show no acute abnormalities. CT PELVIS: Urinary bladder is unopacified. No calculi are seen within urinary bladder. There is no loculated fluid collection, free fluid or free air within the pelvis. No abnormal lymph nodes are seen. Osseous structures show no acute abnormalities. IMPRESSION: 1. Rectal contrast was administered, but was only reflux to the mid ascending colon. No large mass or apple core lesion is identified. Please note, colonic polyp or other early colonic malignancy cannot be entirely excluded based on this exam. Correlation with double contrast barium enema is advised. 2. Multiple micronodules within the included portions of the left lower lobe. Complete characterization with dedicated CT of the chest is advised. Dictated by: Dictated on workstation # [id number]
== END ==
LOC: RAD 07:21
PROVIDERS: ATTEND Surgery
DX: R93.3 Abnormal findings on diagnostic imaging of other parts of digestive tract (principal); R91.8 Other nonspecific abnormal finding of lung field
CPT/HCPCS: 74176